=== PATIENT | female | born 1990 | race African-American/Black ===

== ENCOUNTER 2019-06-25 21:21 | Emergency (ER) | payer OTHER, BC ==
[~2019-06-25] VITALS: Ht 170.2 cm; Wt 74.8 kg
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
[2019-06-25] MEDS ORDERED: IBUPROFEN 400 MG TABLET ONE (22:26)
[2019-06-25] MEDS: IBUPROFEN 400 MG TABLET PO ONE (22:28)
--- NOTE | 2019-06-25 23:00 | NUR ---
PT TAKEN TO XRAY
--- NOTE | 2019-06-25 23:29 | NUR ---
PT BACK FROM XRAY
--- NOTE | 2019-06-25 23:36 | NUR ---
Patient discharged to home in stable condition. Written and verbal after care instructions given. Patient verbalizes understanding of instruction.
[2019-06-25 23:37] VITALS: BP 127/84
== END 2019-06-25 23:38 | disposition home or self-care (01) ==
LOC: ER 21:21
DX: M25.512 Pain in left shoulder (principal); M25.521 Pain in right elbow; M54.6 Pain in thoracic spine; V49.49XA Driver injured in collision with other motor vehicles in traffic accident, initial encounter; Y93.89 Activity, other specified; Y92.413 State road as the place of occurrence of the external cause; Y99.8 Other external cause status
CPT/HCPCS: 72074-TC; 73030-TC; 73080-TC